=== PATIENT | male | born 1975 | race American Indian/Alaskan Native ===

== ENCOUNTER 2020-04-28 21:48 | Emergency (ER) | payer OTHER ==
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
[2020-04-29] MEDS ORDERED: SODIUM CHLORIDE 0.9% 1000 ML 1,000 ML IV ONE (00:16)
[2020-04-29] MEDS ORDERED: MORPHINE 4 MG/1 ML INJ IV ONE (00:16)
[2020-04-29] MEDS ORDERED: ONDANSETRON 4 MG/2 ML INJ IV ONE (00:16)
[2020-04-29 00:54] LABS: Hematocrit 36.7 % (35.5-45.6); Hemoglobin 11.7 gm/dl (11.8-15.2); Mean Corpuscular HGB Conc 32 % (32-34); Mean Corpuscular Volume 75 fl (84-94); Platelet Count 247 K/mm3 (140-440); Red Blood Count 4.86 M/mm3 (3.65-5.03); Red Cell Distribution Width 17.3 % (13.2-15.2)
[2020-04-29 01:04] LABS: Alanine Aminotransferase 13 units/L (7-56); Albumin 4.3 g/dL (3.9-5); BUN/Creatinine Ratio 19; Blood Urea Nitrogen 26 mg/dL (9-20); Calcium 9.3 mg/dL (8.4-10.2); Hemolysis Index 7
[2020-04-29 01:08] LABS: Bilirubin,Direct < 0.2 mg/dL (0-0.2)
[2020-04-29 02:03] LABS: Basophils % (Manual) 0 % (0.0-1.8); Eosinophils % (Manual) 0 % (0.0-4.3); Total Cells Counted 100
[2020-04-29 02:04] LABS: Anisocytosis Few; Hypochromasia Few; Ovalocytes Few; Platelet Estimate Consistent w Auto; Schistocytes Rare
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
[2020-04-29] MEDS ORDERED: KETOROLAC 30 MG/1 ML INJ IV ONE (03:43)
[2020-04-29 06:04] VITALS: BP 176/111
== END 2020-04-29 05:40 | disposition home or self-care (01) ==
LOC: ED 21:48
DX: S29.9XXA Unspecified injury of thorax, initial encounter (principal); S30.1XXA Contusion of abdominal wall, initial encounter; I10 Essential (primary) hypertension; E11.9 Type 2 diabetes mellitus without complications; Z79.1 Long term (current) use of non-steroidal anti-inflammatories (NSAID); V49.49XA Driver injured in collision with other motor vehicles in traffic accident, initial encounter; W22.10XA Striking against or struck by unspecified automobile airbag, initial encounter; Y93.89 Activity, other specified; Y92.410 Unspecified street and highway as the place of occurrence of the external cause; Y99.8 Other external cause status
CPT/HCPCS: 36415; 71101; 71260; 74177; 80048; 80076; 83690; 85007; 85025; 96361; 96374; 96375; 99284; J1885; J2270; J2405; J7030; Q9967

== ENCOUNTER 2020-11-10 06:49 | Emergency (ER) | payer SELFPAY ==
--- NOTE | 2020-11-10 06:57 | Emergency Department Report ---
ED Neuro Deficit HPI - General Stated Complaint: STROKE Time Seen by Provider: 11/10/20 06:50 Source: patient, EMS Mode of arrival: Stretcher Limitations: Other (aphasia) - History of Present Illness Initial Comments: CC: weak on right side HPI: This is a 45 yo male with hx of HTN, DM and CVA who presents with weakness on right-side, sudden onset at 6 AM. Patient was awake this morning when he realized that he could not use his phone. He has right arm and leg weakness. He has difficulty speaking. He is communicating with gestures of his left hand. Medical history obtained via auto care center manager's report to EMS. I spoke with Samantha painter's marco a. She said that she saw him at 5:05 AM this morning when she returned home. She could not say at that time if he was normal. He called her several times from a different room. She could not understand him. She noticed that he was drooling. He had repetitive speech. He seemed to say "I took something." Samantha 's Phone number [phone] Marco A also states that he has been "mentally ill". Patient has been severely depressed. He has been suicidal. He desires to by any means necessary. I spoke with dominik. She clarified at [phone] patient was "perfectly normal" on the phone. She suspects that the stroke occurred after 5 AM. -: Sudden, This morning (0600) Location: speech, right arm, right leg Presenting Symptoms: Present: Weak/Paralyzed One Side History of same: Yes (previous hx of CVA, unknown deficit) Place: home Severity: severe Quality: weak Improves With: none Worsens With: none Context: sudden onset Treatments Prior to Arrival: other (EMS transport) - Related Data Home Medications: Previous Rx's Medication Instructions Recorded Last Taken Type Ibuprofen [Motrin 800 MG tab] 800 mg PO Q8HR PRN #21 tablet 04/29/20 Unknown Rx amLODIPine 10 mg PO DAILY 15 Days #15 tab 04/29/20 Unknown Rx lisinopriL [Zestril TAB] 10 mg PO QDAY 15 Days #15 tablet 04/29/20 Unknown Rx Allergies/Adverse Reactions: Allergies Allergy/AdvReac Type Severity Reaction Status Date / Time No Known Allergies Allergy Unverified 04/28/20 22:27 ED Review of Systems ROS: Stated complaint: STROKE Other details as noted in HPI Comment: Unobtainable due to pts medical conditions (severe aphasia) ED Past Medical Hx - Past Medical History Previous Medical History?: Yes Hx Hypertension: Yes Hx CVA: Yes Hx Diabetes: Yes - Social History Smoking Status: Never Smoker Substance Use Type: None - Medications Home Medications: Home Medications Medication Instructions Recorded Confirmed Last Taken Type Ibuprofen [Motrin 800 MG tab] 800 mg PO Q8HR PRN #21 tablet 04/29/20 Unknown Rx amLODIPine 10 mg PO DAILY 15 Days #15 tab 04/29/20 Unknown Rx lisinopriL [Zestril TAB] 10 mg PO QDAY 15 Days #15 tablet 04/29/20 Unknown Rx ED Neuro Physical Exam - General General appearance: alert, other (constantly coughing) Suspected Stroke: Yes - Head Head exam: Present: atraumatic, normocephalic - Eye Eye exam: Present: normal appearance - ENT ENT exam: Present: mucous membranes moist - Neck Neck exam: Present: normal inspection, full ROM - Respiratory Respiratory exam: Present: normal lung sounds bilaterally. Absent: respiratory distress, wheezes, rales - Cardiovascular Cardiovascular Exam: Present: regular rate, normal rhythm, normal heart sounds. Absent: systolic murmur, diastolic murmur, rubs, gallop - GI/Abdominal GI/Abdominal exam: Present: soft, normal bowel sounds. Absent: distended, tenderness, guarding, rebound - Rectal Rectal exam: Present: deferred - Extremities Exam Extremities exam: Present: normal inspection - Neurological Exam Neurological exam: Present: alert, oriented X3 - NIHSS Assessment Interval: Baseline 1a. Level of Consciousness: alert/keenly responsive 1b. LOC Questions: answers both correctly 1c. LOC Commands: performs tasks correctly 2. Best Gaze: normal 3. Visual: no visual loss 4. Facial Palsy: partial paralysis 5b. Motor Arm Right: no gravity effort 5a. Motor Arm Left: no drift 6a. Motor Leg Left: no drift 6b. Motor Leg Right: no gravity effort 7. Limb Ataxia: absent 8. Sensory: severe/total sensory loss 9. Best Language: severe aphasia 10. Dysarthria: severe dysarthria 11. Extinction/Inattention: no abnormality Total Score: 14 Stroke Severity: Moderate Stroke - Psychiatric Psychiatric exam: Present: normal affect, normal mood - Skin Skin exam: Present: warm, dry, intact, normal color. Absent: rash ED Course Vital Signs 11/10/20 11/10/20 11/10/20 07:06 07:30 07:35 Temperature 98.2 F Pulse Rate 101 H 104 H Pulse Rate [ Right Radial Artery] Respiratory 21 22 Rate Respiratory Rate [Right Radial Artery] Blood Pressure 177/104 177/144 Blood Pressure [Right Radial Artery] Blood Pressure 177/104 [Right] O2 Sat by Pulse 96 95 99 Oximetry O2 Sat by Pulse Oximetry [ Right Radial Artery] 11/10/20 11/10/20 11/10/20 07:46 08:00 08:35 Temperature Pulse Rate Pulse Rate [ 106 H Right Radial Artery] Respiratory 20 51 H Rate Respiratory 18 Rate [Right Radial Artery] Blood Pressure 191/115 191/115 Blood Pressure 186/110 [Right Radial Artery] Blood Pressure [Right] O2 Sat by Pulse 99 86 Oximetry O2 Sat by Pulse 100 Oximetry [ Right Radial Artery] - Reevaluation(s) Reevaluation #1: 11/10/20 07:08 I spoke with teleneurologist Dr. Garibay. It is unclear whether patient's symptoms began at 6 AM. Patient is unable to give history due to severe aphasia. I am currently attempting to contact family member auto care center manager. Reevaluation #2: 11/10/20 07:09 Alcohol phone number that was available in patient's chart. This number is not in service. Reevaluation #3: 11/10/20 08:32 patient is receiving TPA with nurses at bedside. Reevaluation #4: 11/10/20 08:55 Patient's level of consciousness decreased. He had sonorous gurgling respirations. Oxygenation 89% room air. He required emergent intubation for airway management. Reevaluation #5: 11/10/20 09:10 Repeat blood pressure 143/86 - Intubation Time Out Performed: Yes Sedative: Etomidate Mg Given: 20 Paralytic: Succinylcholine Mg Given: 200 Laryngoscope: fiberoptic video scope Size: 4 ET Tube Size: 7.5 Tube Secured Depth (cm): 24 Tube Secured Location: lips Tube Placement Confirmation: visualized tube passing t Patient Tolerated Procedure: well Intubation Complications: none - Lab Data Result diagrams: 11/10/20 07:03 11/10/20 07:03 Lab Results 03/15/21 03/15/21 03/15/21 Range/Units 07:03 07:03 07:03 WBC 5.5 (4.5-11.0) K/mm3 RBC 4.48 (3.65-5.03) M/mm3 Hgb 10.9 L (11.8-15.2) gm/dl Hct 33.3 L (35.5-45.6) % MCV 74 L (84-94) fl MCH 24 L (28-32) pg MCHC 33 (32-34) % RDW 18.1 H (13.2-15.2) % Plt Count 207 (140-440) K/mm3 Lymph % (Auto) 26.1 (13.4-35.0) % Humphreys % (Auto) 6.2 (0.0-7.3) % Eos % (Auto) 1.6 (0.0-4.3) % Baso % (Auto) 1.5 (0.0-1.8) % Lymph # (Auto) 1.4 (1.2-5.4) K/mm3 Humphreys # (Auto) 0.3 (0.0-0.8) K/mm3 Eos # (Auto) 0.1 (0.0-0.4) K/mm3 Baso # (Auto) 0.1 (0.0-0.1) K/mm3 Seg Neutrophils % 64.6 (40.0-70.0) % Seg Neutrophils # 3.6 (1.8-7.7) K/mm3 PT 12.5 (12.2-14.9) Sec. INR 0.94 (0.87-1.13) APTT 32.6 (24.2-36.6) Sec. Thrombin Time 18.1 (15.1-19.6) Sec. Sodium 139 (137-145) mmol/L Potassium 4.3 (3.6-5.0) mmol/L Chloride 106.4 (98-107) mmol/L Carbon Dioxide 23 (22-30) mmol/L Anion Gap 14 mmol/L BUN 39 H (9-20) mg/dL Creatinine 2.2 H (0.8-1.3) mg/dL Estimated GFR 39 ml/min BUN/Creatinine Ratio 18 % Glucose 217 H (75-100) mg/dL Calcium 8.7 (8.4-10.2) mg/dL Troponin T < 0.010 (0.00-0.029) ng/mL TSH (0.270-4.200) mlU/mL 11/10/20 Range/Units 08:06 WBC (4.5-11.0) K/mm3 RBC (3.65-5.03) M/mm3 Hgb (11.8-15.2) gm/dl Hct (35.5-45.6) % MCV (84-94) fl MCH (28-32) pg MCHC (32-34) % RDW (13.2-15.2) % Plt Count (140-440) K/mm3 Lymph % (Auto) (13.4-35.0) % Humphreys % (Auto) (0.0-7.3) % Eos % (Auto) (0.0-4.3) % Baso % (Auto) (0.0-1.8) % Lymph # (Auto) (1.2-5.4) K/mm3 Humphreys # (Auto) (0.0-0.8) K/mm3 Eos # (Auto) (0.0-0.4) K/mm3 Baso # (Auto) (0.0-0.1) K/mm3 Seg Neutrophils % (40.0-70.0) % Seg Neutrophils # (1.8-7.7) K/mm3 PT (12.2-14.9) Sec. INR (0.87-1.13) APTT (24.2-36.6) Sec. Thrombin Time (15.1-19.6) Sec. Sodium (137-145) mmol/L Potassium (3.6-5.0) mmol/L Chloride (98-107) mmol/L Carbon Dioxide (22-30) mmol/L Anion Gap mmol/L BUN (9-20) mg/dL Creatinine (0.8-1.3) mg/dL Estimated GFR ml/min BUN/Creatinine Ratio % Glucose (75-100) mg/dL Calcium (8.4-10.2) mg/dL Troponin T (0.00-0.029) ng/mL TSH 2.460 (0.270-4.200) mlU/mL - EKG Data -: EKG Interpreted by Ri EKG shows normal: sinus rhythm, axis, intervals, QRS complexes Rate: normal Interpretation: nonspecific ST-T wave noemí 11/10/20 07:47 EKG obtained 0744 EKG interpreted by az Normal sinus rhythm rate 90 bpm normal axis normal intervals no ST elevation nonspecific T wave pattern - Radiology Data Radiology results: report reviewed, image reviewed CT angio head, CT angio neck HISTORY: COMPARISON: There are minimal wall is demonstrated on TECHNIQUE: CTA of the neck and head is performed after IV contrast. 3-D/MIP reformats were postprocessed. Percentage stenosis is determined by direct quantitative measurements of diseased internal carotid artery diameter compared with normal distal internal carotid artery reference segments or by criteria similar to NASCET where applicable. All CT scans at this location are performed using CT dose reduction for ALARA by means of automated exposure control. FINDINGS: CTA NECK: Aortic arch: No significant abnormality. Cervical vertebral arteries: No occlusion or hemodynamically significant stenosis. Common Carotid arteries: No occlusion or hemodynamically significant stenosis. Internal carotid arteries: No occlusion or hemodynamically significant stenosis. CTA HEAD: Intracranial internal carotid arteries: Multifocal moderate narrowing. Anterior cerebral arteries: Right A1 segment is hypoplastic or absent which is a common finding. No occlusion or significant stenosis. Middle cerebral arteries: No occlusion or significant stenosis. Intracranial vertebral arteries: High-grade stenosis of the bilateral V4 segments. Basilar artery: Occlusion of the basilar artery. Posterior cerebral arteries: Mild narrowing of the proximal project economist. No definite posterior cerebral artery occlusion. No aneurysm. Additional findings: Banda-white matter differentiation loss of the bilateral occipital lobes and right thalamus. The high attenuation seen on CT head does represent basilar artery thrombus. [facility] [address], [address] [place] [address] P [phone] F [phone] [facility] - Report exported on Nov 10, 2020 07:36:07 -[id number] - Page 2 of 2 IMPRESSION: 1. 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 There is reconstitution of the posterior cerebral arteries through collateral circulation. 2. High-grade stenosis of the bilateral V4 vertebral arteries. 3. Multifocal moderate narrowing of the internal carotid artery siphons. CT head/brain wo con INDICATION: neuro deficits <6hrs or sx present upon awakening. TECHNIQUE: Routine CT head. All CT scans at this location are performed using CT dose reduction for ALARA by means of automated exposure control. COMPARISON: None. FINDINGS: Image quality is significantly degraded by artifact Intracranial: Age-indeterminate infarctions involving the cervical os which is difficult to evaluate given the significant artifact. However they appear as a subacute chronic. High attenuation seen in the basilar artery on image 48 of series 2 which is likely artifactual considering it is not seen on the other axial image such as 12 of series 2. Banda-white matter differentiation is maintained. No intracranial hemorrhage. No extra axial collection. No hydrocephalus. No herniation. Sinuses: Paranasal sinuses and mastoid air cells are essentially clear. Orbits: Globes are intact. Calvarium: No acute fracture. IMPRESSION: 1. Age-indeterminate occipital lobe infarctions but they appear more subacute to chronic. Correlate with symptoms. - Medical Decision Making Acute ischemic CVA: Due to unclear time of onset, thrombolytic therapy was not given immediately upon arrival. I spoke directly with radiology team in order to arrange for stent CT angiogram of the head and neck. After clarifying with dominik the time of onset of symptoms, I spoke with Dr. Samaniego teleneurologist, w ho agreed that TPA should be given. I spoke with Dr. Atkins neuro jewelry engraver at [facility] for transfer. He did not have bed capacity to accept patient. I spoke with [facility] transfer center nurse. I spoke with Dr. Ewing and Dr. Kerr neurology specialist at [facility] who accepted the patient in transfer for endovascular treatment consideration. Patient will be transported emergent ly to [facility] first floor CT scanner. ED patient insurance clerk arrange for images to be pushed to [facility] power chair for direct visualization by the stroke team at [facility]. I have updated fiance on patient's status. Critical Care Time: Yes Critical care time in (mins) excluding proc time.: 100 Critical care attestation.: If time is entered above; I have spent that time in minutes in the direct care of this critically ill patient, excluding procedure time. 100 minutes of critical care time excluding procedures were used in the care of the patient. I came immediately to the bedside upon patient's arrival. I obt ained history from EMS at the bedside. I activated code stroke protocol. I discussed treatment plan with the nursing team members. I reviewed electronic record. Patient required multiple interventions and reassessments. I spoke with multiple consultants regarding treatment plan. I spoke with te leneurologist, radiologist and hospitalist. ED Disposition Clinical Impression: Acute CVA (cerebrovascular accident), Acute respiratory failure, Basilar artery thrombosis, Occipital infarction Disposition: [id number]/TX-[id number] ANOTHER TYPE HLTHCARE Is pt being admited?: No Does the pt Need Aspirin: No Condition: Critical
--- NOTE | 2020-11-10 07:09 | Emergency Department Report ---
Blank Doc - Documentation Documentation: [facility] Consult Note # Demographics Consult Type: Acute Stroke Level 1 (0-4.5 hrs) Patient Location: Emergency Room First Name: Marco Last Name: Regino Date of : 1975 Age: 45 Gender: Male Time of Initial Page ( Time): 11/10/2020, 05:55 Time of Return Call ( Time): 11/10/2020, 05:55 # HPI History: pt right right sided weakness and aphasia. cannot confirm history but EMS reporting symptoms started after waking. the patientcannot provide a history, holding up 3 fingers, but he cannot tell me what he means by that or a last well time # Scores Time of exam and NIHSS (): 11/10/2020, 06:04 Level of Consciousness 1a: [0] = Alert; keenly responsive LOC Questions 1b: [2] = Answers neither correctly LOC Commands 1c: [0] = Performs both tasks correctly Best Gaze 2: [0] = Normal Visual 3: [0] = No visual loss Facial Palsy 4: [0] = Normal symmetrical movements Motor Arm Left 5a: [0] = No drift Motor Arm Right 5b: [4] = No movement Motor Leg Left 6a: [0] = No drift Motor Leg Right 6b: [4] = No movement Limb Ataxia 7: [0] = Absent Sensory 8: [0] = Normal Best Language 9: [2] = Severe aphasia Dysarthria 10: [2] = Severe dysarthria Extinction and Inattention 11: [0] = No abnormality NIHSS Total: 14 # PMH-FH-SH Past Medical History: Diabetes, hyperlipidemia, hypertension # Data Head CT: pending # Assessment Impression: Ischemic Stroke (Acute), Stroke Mimic # Plan Thrombolytic/Intervention: NOT IV Thrombolytic or IA Intervention Thrombolytic Exclusion (< 3 hour window): time of onset unclear Thrombolytic Exclusion: need to confirm onset time as pt not ablet o provide a clear enough history Intraarterial Exclusion: clinically consistent with small vessel disease Imaging: (urgency: STAT in ED): CT Angiogram Head and CT Angiogram Neck AND call back with results if abnormal Therapy/Evaluation: NPO until swallow evaluation, PT/OT evaluation, speech/swallow consultation Other: I have discussed my recommendations with the referring provider Additional Recommendations: ED rying to reach roommates or someone who saw the patient. if last will within 4.5 hours from then would treat with IV tPA given deficits # Logistics Telemedicine: Interactive 2 way audio and visual telecommunication technology was utilized during this visit
[2020-11-10 07:14] LABS: Basophils # (Auto) 0.1 K/mm3 (0.0-0.1); Basophils % (Auto) 1.5 % (0.0-1.8); Eosinophils # (Auto) 0.1 K/mm3 (0.0-0.4); Eosinophils % (Auto) 1.6 % (0.0-4.3); Hematocrit 33.3 % (35.5-45.6); Hemoglobin 10.9 gm/dl (11.8-15.2); Lymphocytes # (Auto) 1.4 K/mm3 (1.2-5.4); Lymphocytes % (Auto) 26.1 % (13.4-35.0); Mean Corpuscular HGB Conc 33 % (32-34); Mean Corpuscular Volume 74 fl (84-94); Monocytes # (Auto) 0.3 K/mm3 (0.0-0.8); Monocytes % (Auto) 6.2 % (0.0-7.3); Platelet Count 207 K/mm3 (140-440); Red Blood Count 4.48 M/mm3 (3.65-5.03); Red Cell Distribution Width 18.1 % (13.2-15.2)
[2020-11-10 07:24] LABS: INR 0.94 (0.87-1.13)
[2020-11-10 07:25] LABS: Partial Thromboplastin Time 32.6 Sec. (24.2-36.6); Thrombin Time 18.1 Sec. (15.1-19.6)
[2020-11-10 07:27] LABS: BUN/Creatinine Ratio 18; Blood Urea Nitrogen 39 mg/dL (9-20); Calcium 8.7 mg/dL (8.4-10.2); Hemolysis Index 3
--- NOTE | 2020-11-10 07:31 | Cat Scan Report ---
CT head/brain wo con INDICATION: neuro deficits <6hrs or sx present upon awakening. TECHNIQUE: Routine CT head. All CT scans at this location are performed using CT dose reduction for A ALEXANDRA by means of automated exposure control. COMPARISON: None. FINDINGS: Image quality is significantly degraded by artifact Intracranial: Age-indeterminate infarctions involving the cervical os which is difficult to evaluate given the significant artifact. However they appear as a subacute chronic. High attenuation seen in t he basilar artery on image 48 of series 2 which is likely artifactual considering it is not seen on t he other axial image such as 12 of series 2. Banda-white matter differentiation is maintained. No intr acranial hemorrhage. No extra axial collection. No hydrocephalus. No herniation. Sinuses: Paranasal sinuses and mastoid air cells are essentially clear. Orbits: Globes are intact. Calvarium: No acute fracture. IMPRESSION: 1. Age-indeterminate occipital lobe infarctions but they appear more subacute to chronic. Correlate with symptoms. Signer Name: Ralph Russ MD Signed: 11/10/2020 7:27 AM Workstation Name: [id number]
[2020-11-10] MEDS ORDERED: SODIUM CHLORIDE 0.9% 1000 ML 1,000 ML IV ONE (07:38)
[2020-11-10] MEDS ORDERED: ALTEPLASE 100 MG INJ KIT IV ONE ×2 (08:13)
[2020-11-10] MEDS ORDERED: SODIUM CHLORIDE 0.9% 50 ML IVPB IV ONE (08:13)
--- NOTE | 2020-11-10 08:15 | Cat Scan Report ---
CT angio head, CT angio neck HISTORY: COMPARISON: There are minimal wall is demonstrated on TECHNIQUE: CTA of the neck and head is performed after IV contrast. 3-D/MIP reformats were postproces sed. Percentage stenosis is determined by direct quantitative measurements of diseased internal szymanski tid artery diameter compared with normal distal internal carotid artery reference segments or by crit eria similar to NASCET where applicable. All CT scans at this location are performed using CT dose re duction for ALARA by means of automated exposure control. FINDINGS: CTA NECK: Aortic arch: No significant abnormality. Cervical vertebral arteries: No occlusion or hemodynamically significant stenosis. Common Carotid arteries: No occlusion or hemodynamically significant stenosis. Internal carotid arteries: No occlusion or hemodynamically significant stenosis. CTA HEAD: Intracranial internal carotid arteries: Multifocal moderate narrowing. Anterior cerebral arteries: Right A1 segment is hypoplastic or absent which is a common finding. No o cclusion or significant stenosis. Middle cerebral arteries: No occlusion or significant stenosis. Intracranial vertebral arteries: High-grade stenosis of the bilateral V4 segments. Basilar artery: Occlusion of the basilar artery. Posterior cerebral arteries: Mild narrowing of the proximal executive administrative assistant. No definite posterior cerebral valerie ry occlusion. No aneurysm. Additional findings: Banda-white matter differentiation loss of the bilateral occipital lobes and righ t thalamus. The high attenuation seen on CT head does represent basilar artery thrombus. IMPRESSION: 1. 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 There is re constitution of the posterior cerebral arteries through collateral circulation. 2. High-grade stenosis of the bilateral V4 vertebral arteries. 3. Multifocal moderate narrowing of the internal carotid artery siphons. I informed Dr. Cope at 6:55. Signer Name: Ralph Russ MD Signed: 11/10/2020 8:10 AM Workstation Name: [id number]
--- NOTE | 2020-11-10 08:23 | XRay Report ---
CHEST 1 VIEW INDICATION: stroke symptoms. COMPARISON: None FINDINGS: Support devices: None. Heart: Within normal limits. Lungs/Pleura: No acute air space or interstitial disease. Additional findings: None. IMPRESSION: No acute findings. Signer Name: Rommel Rasheed Jr, MD Signed: 11/10/2020 8:19 AM Workstation Name: [id number]
[2020-11-10] MEDS ORDERED: SUCCINYLCHOLINE CHLORIDE 200 MG/10 ML INJ MDV ONE (08:37)
[2020-11-10] MEDS ORDERED: ETOMIDATE 20 MG/10 ML INJ IV ONE ×3 (08:37→10:18)
[2020-11-10] MEDS ORDERED: MIDAZOLAM 5 MG/5 ML INJ MDV IV ONE (08:48)
[2020-11-10] MEDS ORDERED: MINERAL OIL/PETROLATUM, WHITE OPHTH OINT 3.5 GM OU PRN (08:50)
[2020-11-10] MEDS ORDERED: LIP THERAPY VASELINE TP PRN (08:50)
[2020-11-10] MEDS ORDERED: SUCCINYLCHOLINE CHLORIDE 200 MG/10 ML INJ MDV IV ONE ×2 (08:53→10:19)
[2020-11-10] MEDS ORDERED: MIDAZOLAM 5 MG/5 ML INJ MDV IV NR (09:00)
[2020-11-10 09:26] VITALS: BP 131/102
--- NOTE | 2020-11-10 09:38 | XRay Report ---
CHEST 1 VIEW 11/10/2020 8:29 AM INDICATION / CLINICAL INFORMATION: ETT placement. COMPARISON: 11/10/2020 FINDINGS: SUPPORT DEVICES: Interval placement of ET tube with its tip at the level the clavicles. Interval plac ement of NG tube with its tip in appropriate position. HEART / MEDIASTINUM: Stable. LUNGS / PLEURA: Interval development of linear atelectasis right lung base with volume loss. No pneum othorax. ADDITIONAL FINDINGS: No significant additional findings. IMPRESSION: 1. Interval placement of ET and NG tubes in appropriate position. 2. Interval development of linear atelectasis right lung base. Signer Name: Trenton Gurrola MD Signed: 11/10/2020 9:33 AM Workstation Name: [id number]
[2020-11-10] MEDS ORDERED: niCARdipine 50 MG in SODIUM CHLORIDE 0.9% 250ML 230 ML IV SCH (10:00)
== END 2020-11-10 10:31 | disposition other institution (70) ==
LOC: ED 06:49
DX: I63.9 Cerebral infarction, unspecified (principal); J96.00 Acute respiratory failure, unspecified whether with hypoxia or hypercapnia; I65.1 Occlusion and stenosis of basilar artery; I10 Essential (primary) hypertension; E11.9 Type 2 diabetes mellitus without complications; Z79.899 Other long term (current) drug therapy; Z86.73 Personal history of transient ischemic attack (TIA), and cerebral infarction without residual deficits
CPT/HCPCS: 31500; 36415; 70450; 70496; 70498; 71045; 80048; 84443; 84484; 85025; 85610; 85670; 85730; 93005; 96365; 96366; 96375; 96376; 99291; J0330; J2250; J2704; J2997; J7030; J7050; Q9967; 80320; 94002; G0480